=== PATIENT | female | born 1995 | race Caucasian/White ===

== ENCOUNTER 2019-01-23 18:55 | Inpatient (IN) | payer BC ==
[2019-01-23] MEDS ORDERED: D5 LR IV SOLUTION 1,000 ML IV ONE (19:02)
[2019-01-23] MEDS: D5 LR IV SOLUTION 1,000 ML IV SCH (19:40)
[2019-01-23] MEDS ORDERED: NS IV 500 ML 500 ML ONE (19:46)
[2019-01-23] MEDS ORDERED: MISOPROSTOL 100 MCG (CYTOTEC) TAB ONE (19:48)
[2019-01-23 20:00] VITALS: BP 136/81
[2019-01-23] MEDS ORDERED: HYDROmorphone 2 MG/ML VIAL (DILAUDID) IVP ONE (20:00)
[2019-01-23] MEDS ORDERED: NS IV 500 ML 500 ML IV SCH (20:00)
[2019-01-23] MEDS ORDERED: MISOPROSTOL 100 MCG (CYTOTEC) TAB PO ONE (20:00)
[2019-01-23 20:20] LABS: BASOPHILS % (AUTO) 0 % (0-10); EOSINOPHILS % (AUTO) 1 % (0-10); HEMATOCRIT 30 % (35-52); LYMPHOCYTES # (AUTO) 1.7 X 10^3 (1.0-4.0); LYMPHOCYTES % (AUTO) 28 % (12-44); MEAN CORPUSCULAR HEMOGLOBIN 28 PG (25-34); MEAN CORPUSCULAR HGB CONC 34 G/DL (32-36); MEAN CORPUSCULAR VOLUME 82 FL (80-99); MEAN PLATELET VOLUME 10.2 FL (7.4-10.4); MONOCYTES # (AUTO) 0.7 X 10^3 (0.0-1.0); MONOCYTES % (AUTO) 11 % (0-12); NEUTROPHILS # (AUTO) 3.5 X 10^3 (1.8-7.8); NEUTROPHILS % (AUTO) 60 % (42-75); PLATELET COUNT 218 10^3/uL (130-400); RED CELL DISTRIBUTION WIDTH 13.8 % (10.0-14.5); WHITE BLOOD COUNT 5.9 10^3/uL (4.3-11.0)
[2019-01-23 20:50] LABS: BILIRUBIN,URINE NEGATIVE (NEGATIVE); CLARITY,URINE SL CLOUDY; COLOR,URINE YELLOW; GLUCOSE, URINE (UA) NEGATIVE (NEGATIVE); KETONES,URINE TRACE (NEGATIVE); LEUKOCYTE ESTERASE ,URINE TRACE (NEGATIVE); NITRITE,URINE NEGATIVE (NEGATIVE); PROTEIN,URINE NEGATIVE (NEGATIVE)
[2019-01-23 20:56] LABS: BACTERIA,URINE MODERATE /HPF; SQUAMOUS EPITHELIAL CELL,UR >50 /HPF
[2019-01-23] MEDS ORDERED: CALCIUM CARBONATE 500 MG (TUMS) TAB.CHEW ONE (21:57)
[2019-01-24] VITALS (45 sets, daily range): BP systolic 112–166; BP diastolic 66–105
[2019-01-24] MEDS ORDERED: MISOPROSTOL 100 MCG (CYTOTEC) TAB PO SCH
[2019-01-24] MEDS ORDERED: ONDANSETRON 4 MG/2 ML (SDV) Z0FRAN ONE (01:05)
[2019-01-24] MEDS: D5 LR IV SOLUTION 1,000 ML IV SCH ×2 (04:29→11:20)
[2019-01-24] MEDS ORDERED: CALCIUM CARBONATE 500 MG (TUMS) TAB.CHEW PO PRN (05:15)
[2019-01-24] MEDS ORDERED: ONDANSETRON 4 MG/2 ML (SDV) Z0FRAN IVP PRN (05:15)
[2019-01-24] MEDS ORDERED: PREN-53 PO (05:16)
[2019-01-24] MEDS: CATHETER FLUSH 10 ML SYR IV SCH ×2 (06:15→06:16)
[2019-01-24] MEDS ORDERED: OXYTOCIN/NORMAL SALINE 500 ML IV SCH ×3 (07:10→15:00)
--- NOTE | 2019-01-24 07:30 | History & Physical-OB ---
OB - Chief Complaint & HPI Date/Time Date of Admission: Date of Admission: Jan 23, 2019 at 18:55 Date seen by a Provider: Jan 24, 2019 Time Seen by a Provider: 07:00 Chief Complaint/History OB-Reason for Admission/Chief: Induction of Labor Hx : 1 Hx Para: 0 Expected Date of Delivery: Jan 29, 2019 Gestational Age in Weeks: 39 Gestational Age in Days: 1 Admission Nurse Assessment Rev: Yes (`) History of Labs B pos Antibody neg RI RPR NR HBsAg HIV NR GC neg GBS neg Allergies and Home Medications Allergies Coded Allergies: No Known Drug Allergies (Unverified , 01/23/19) Home Medications [id number]/Iron Fumarate/FA/Dss 1 Each Tablet, 1 EACH PO DAILY, (Reported) Patient Home Medication List Home Medication List Reviewed: Yes OB - History Hx of Present Care: Yes Ultrasounds: Normal mid trimester US Obstetrical Complications: None Medical Complications: None Patient Past Medical History n/a Social History/Family History Recent Infectious Disease Expo: No Alcohol Use: Denies Use Recreational Drug Use: No Immunizations Date of Influenza Vaccine: Dec 14, 2018 OB - Admission Exam Physical Exam Vitals: Vital Signs 01/24/19 01/24/19 00:00 07:00 Temp 36.4 Pulse 49 Resp 18 B/P (MAP) 136/81 (99) HEENT: NCAT Heart: Rhythm Normal Lungs: Clear Abdomen: Gravid Extremities: Normal Reflexes: Normal Cervical Dilatation: 2cm Effacement: 75% Station: -1 Membranes: Intact Heart Rate: 130's Accelerations: Accelerations Present Decelerations: No Decelerations Short Term Variability: Present Financial Administrator Variability: Average (6-25) Contractions on Admission: < 5 Minutes Apart Intensity: Moderate Labs Laboratory Tests Test 01/23/19 19:15 01/23/19 20:10 Range/Units Urine Color YELLOW Urine Clarity SL CLOUDY Urine pH 6.0 5-9 Urine Specific [place] 1.020 1.016-1.022 Urine Protein NEGATIVE NEGATIVE Urine Glucose (UA) NEGATIVE NEGATIVE Urine Ketones TRACE H NEGATIVE Urine Nitrite NEGATIVE NEGATIVE Urine Bilirubin NEGATIVE NEGATIVE Urine Urobilinogen 0.2 < = 1.0 MG/DL Urine Leukocyte Esterase TRACE NEGATIVE Urine RBC (Auto) NEGATIVE NEGATIVE Urine RBC NONE /HPF Urine WBC 10-25 H /HPF Urine Squamous Epithelial Cells >50 H /HPF Urine Crystals NONE /LPF Urine Bacteria MODERATE H /HPF Urine Casts NONE /LPF Urine Mucus NEGATIVE /LPF Urine Culture Indicated YES White Blood Count 5.9 4.3-11.0 10^3/uL Red Blood Count 3.62 L 4.35-5.85 10^6/uL Hemoglobin 10.0 L 11.5-16.0 G/DL Hematocrit 30 L 35-52 % Mean Corpuscular Volume 82 80-99 FL Mean Corpuscular Hemoglobin 28 25-34 PG Mean Corpuscular Hemoglobin Concent 34 32-36 G/DL Red Cell Distribution Width 13.8 10.0-14.5 % Platelet Count 218 130-400 10^3/uL Mean Platelet Volume 10.2 7.4-10.4 FL Neutrophils (%) (Auto) 60 42-75 % Lymphocytes (%) (Auto) 28 12-44 % Monocytes (%) (Auto) 11 0-12 % Eosinophils (%) (Auto) 1 0-10 % Basophils (%) (Auto) 0 0-10 % Neutrophils # (Auto) 3.5 1.8-7.8 X 10^3 Lymphocytes # (Auto) 1.7 1.0-4.0 X 10^3 Monocytes # (Auto) 0.7 0.0-1.0 X 10^3 Eosinophils # (Auto) 0.0 0.0-0.3 10^3/uL Basophils # (Auto) 0.0 0.0-0.1 10^3/uL OB - Assessment/Plan/Diagnosis Assessment Assessment: induction of labor Admission Dx 23 yo @ 39 weeks Induction of labor- elective GBS neg Admission Status: Inpatient Order (span 2 midnights) Reason for Inpatient Admission: Term induction of labor Plan Induction Method: per Misoprostol Protocol (and AROM) LYNDSEY OCAMPO DO Jan 24, 2019 07:30 POS
[2019-01-24] MEDS ORDERED: SUFENTA 0.6MCG/ML BUPIVA 0.125 100 ML ONE (08:34)
--- NOTE | 2019-01-24 08:45 | NUR ---
anesthesia to OB floor
[2019-01-24] MEDS ORDERED: fentaNYL INJECTION 100 MCG/2 ML AMP ONE (08:46)
[2019-01-24] MEDS ORDERED: BUPIVACAINE 0.25% 30 ML (SENSORCAINE) VIAL ONE (08:46)
[2019-01-24] MEDS ORDERED: diphenhydrAMINE 50 MG/ML INJ (BENADRYL) IV PRN (09:30)
[2019-01-24] MEDS ORDERED: NALOXONE 0.4 MG/ML 1 ML (NARCAN) VIAL IV PRN ×2 (09:30)
[2019-01-24] MEDS ORDERED: LACTATED RINGERS 1,000 ML IV SCH (09:30)
[2019-01-24] MEDS ORDERED: EPIDURAL (SUFENTA 0.6MCG/ML BUPIVA 0.125%) 100 ML BAG EPI PRN (09:30)
[2019-01-24] MEDS ORDERED: METOCLOPRAMIDE INJ 10 MG/2 ML (REGLAN) IV PRN (09:30)
[2019-01-24] MEDS ORDERED: ONDANSETRON 4 MG/2 ML (SDV) Z0FRAN IV PRN (09:30)
[2019-01-24] MEDS ORDERED: LIDOCAINE/EPI 2% 1:200,00 (XYLOCAINE) 10 ML VIAL ONE (12:53)
[2019-01-24] MEDS ORDERED: FAMOTIDINE 20MG/2ML IV (PEPCID) ONE (12:57)
[2019-01-24] MEDS ORDERED: FAMOTIDINE 20MG/2ML IV (PEPCID) IVP ONE (13:00)
--- NOTE | 2019-01-24 13:07 | NUR ---
dr notified of patient reports of pressure to push with contractions.
--- NOTE | 2019-01-24 13:40 | NUR ---
pericare performed by this RN. light flow noted. 1342 vpad to perineum. epidural off. 1343 assisted out of stirrups. repositioned to semifowler. new gown on. 1346 epidural removed tip intact. 1348 fundal massage by this RN. ffu/1 light flow no clots expressed. repositioned to high fowlers. family at bedside.
[2019-01-24] MEDS ORDERED: IBUPROFEN 600 MG (MOTRIN) TAB PO ONE (13:53)
--- NOTE | 2019-01-24 14:10 | NUR ---
2nd bag of pitocin hung as ordered per dr lau. denies need. family at bedside. ffu/1. no clots. light to moderate flow.
--- NOTE | 2019-01-24 14:40 | NUR ---
resting quietly. 2nd bag of pitocin infused. ffu/0 light flow noted. remains skin to skin. actively nursing. mother denies need or concerns at this time.
[2019-01-24] MEDS ORDERED: TETANUS,DIPTH,PERTUSS P/F (BOOSTRIX) 0.5 ML VIAL IM ONE (15:00)
[2019-01-24] MEDS ORDERED: IBUPROFEN 600 MG (MOTRIN) TAB PO SCH (15:00)
[2019-01-24] MEDS ORDERED: MEASLES,MUMPS,RUBELLA 1 EA INJ SQ ONE (15:00)
--- NOTE | 2019-01-24 15:00 | NUR ---
resting quietly in bed. infant actively nursing at breast. good suck and latch noted. s/o at bedside. ffu/0 denies further need at this time.
--- NOTE | 2019-01-24 15:08 | OB Labor & Delivery Record ---
L&D History Date of Service Date of Service: Jan 24, 2019 History Expected Date of Delivery: Jan 29, 2019 Gestational Age in Weeks: 39 Hx : 1 Hx Para: 0 Complications Events: Routine care Operative Indications (Cesarea: N/A-Vaginal Delivery Intrapartal Events: None L&D Stage1 Stage One Onset of Labor - Date: Jan 24, 2019 Monitors and Tracing Monitor Mode: External Heart Rate: 120 Monitor Accelerations: Uniform Monitor Decelerations: None Station: +1 Brand Manager Variability: Average (6-10) Short Term Variability: Present Presentation: Vertex Vital Signs VS - Last 72 Hours, by Label POS 01/23/19 01/24/19 01/24/19 01/24/19 20:00 00:00 02:00 03:00 Temp 36.7 36.4 Pulse 86 64 60 Resp 18 18 18 18 B/P (MAP) 136/81 (99) 129/78 (95) 120/74 (89) 01/24/19 01/24/19 01/24/19 01/24/19 04:00 05:00 06:00 07:00 Pulse 62 53 53 49 Resp 18 18 18 18 B/P (MAP) 120/71 (87) 112/72 (85) 112/72 (85) 136/81 (99) 01/24/19 01/24/19 01/24/19 01/24/19 07:50 08:50 08:55 09:00 Pulse 71 77 75 76 Resp 18 20 20 20 B/P (MAP) 132/85 (101) 166/105 (125) 152/104 (120) 143/93 (110) Pulse Ox 100 100 99 O2 Delivery Room Air Room Air Room Air 01/24/19 01/24/19 01/24/19 01/24/19 09:05 09:10 09:15 09:20 Pulse 78 87 67 83 Resp 18 18 18 16 B/P (MAP) 141/95 (110) 146/89 (108) 133/79 (97) 130/83 (99) Pulse Ox 99 100 100 100 O2 Delivery Room Air Room Air Room Air Room Air 01/24/19 01/24/19 01/24/19 01/24/19 09:25 09:30 09:35 09:40 Pulse 76 60 65 86 Resp 16 16 18 18 B/P (MAP) 138/87 (104) 130/81 (97) 129/83 (98) 133/89 (104) Pulse Ox 100 100 100 100 O2 Delivery Room Air Room Air Room Air Room Air 01/24/19 01/24/19 01/24/19 01/24/19 09:45 10:00 10:15 10:30 Pulse 68 57 57 58 Resp 18 18 18 18 B/P (MAP) 135/85 (102) 132/80 (97) 133/82 (99) 123/74 (90) Pulse Ox 100 100 100 100 O2 Delivery Room Air Room Air Room Air Room Air 01/24/19 01/24/19 01/24/19 01/24/19 10:45 11:00 14:00 14:10 Temp 37.1 Pulse 66 61 74 79 Resp 18 18 18 18 B/P (MAP) 134/81 (98) 135/87 (103) 150/92 (111) 146/91 (109) Pulse Ox 100 100 100 100 O2 Delivery Room Air Room Air Room Air Room Air 01/24/19 14:25 Temp 36.4 Pulse 67 Resp 20 B/P (MAP) 151/72 (98) O2 Delivery Room Air Rupture of Membranes Spontaneous Ruture of Membrane: No Amniotic Membrane Rupture Time: 0706 Amniotic Membrane Fluid Desc.: Clear Vaginal Bleeding Description: Normal Show Induction/Anesthesia Epidural Cath Placement - Time: 858 Progress/Notes Patient admitted last night and received misoprostol PO overnight. She progressed to 2 cm this am, when AROM was performed and Pitocin was started. She progressed and received an epidural. She progressed to complete and +2 station when she began to feel pressure L&D Stage2 Stage Two Stage II Date: Jan 24, 2019 Monitors and Tracing Monitor Mode: External Heart Rate: 120 Monitor Accelerations: Uniform Monitor Decelerations: Variable Short Term Variability: Present Position: Right Occiput Anterior Presentation: Vertex Signs of Distress by FHT Signs of Distress heart rate difficult to trace during 2nd stage, and FHR in the 60s-80s with pushing. Due to proximity to delivery low vaccum extraction done with [place]. Cup applied to flexion point 500 mmHg appled by hand pump, and with next maternal push, RML was cut and 's head was delivered with extension and gentle traction of the vacuum. After which the suction was released. Cord Descript/Complications Cord Vessel Description: 3 Vessels Complications nuchal cord reduced x 1 Delivery Type Infant Delivery Method: Low Vacuum Extraction Anterior Shoulder: Right Episiotomy/Perineal Laceration Laceraction(s)/Extensions: Yes Episiotomy Description: Right Mediolateral Degree (describe repair) RML repaired using 3-0 and 2-0 vicryl suture in usual fashion Condition of Infant Delivery 1 minute Comment: 7 5 minute Comment: 9 Notes Live male weight 8lbs 7 oz Condition of Infant Condition of Infant: Living Exam: No Observed Abnormalities Resuscitation Resuscitation: N/A - Spontaneous Resp L&D Stage3 Stage Three Stage III Date: Jan 24, 2019 Pictocin Pitocin Administration mu/min: 10 Pitocin ml/hr: 10 Pitocin Administration Comment: 30 mu wide open at delivery of placenta Placenta Delivery Placenta Delivery: Spontaneous Delivery Summary Summary Estimated blood loss (mL): 350 Attending at delivery: Lyndsey Ocampo DO Condition of Delivery Examined: Cervix Examined, Uterus Explored Post Hemorrhage: No Condition of Mother stable Condition of (s) stable LYNDSEY OCAMPO DO Jan 24, 2019 3:08 pm POS
[2019-01-24] MEDS ORDERED: IBUP-844 PO (15:09)
[2019-01-24] MEDS ORDERED: HYDR-4226 PO (15:09)
[2019-01-24] MEDS ORDERED: DOCU100C37 PO (15:09)
[2019-01-24] MEDS ORDERED: Benzocaine/Menthol TP (15:09)
[2019-01-24] MEDS ORDERED: FERR325T18 PO (15:09)
--- NOTE | 2019-01-24 15:10 | Discharge Inst-Women's Service ---
Discharge Inst-Women's Serv Depart Medication/Instructions New, Converted or Re-Newed RX: RX on Chart Problems Reviewed?: Yes Consults/Follow Up Additional Follow Up: Yes Orders/Referrals Dr. Ocampo in 6 weeks Activity Activity: Activity as Tolerated Driving Instructions: No Driving for 1 Week NO SMOKING: NO SMOKING Nothing Inside Vagina: No Douching, No [place], No Tampons Diet Discharge Diet: No Restrictions Symptoms to Report to : Bleeding Excessive, Pain Increased, Fever Over 101 Degrees F, Vaginal Bleeding Increase, Questions/Concerns For Any Problems or Questions: Contact Your Physician LYNDSEY OCAMPO DO Jan 24, 2019 3:10 pm POS
[2019-01-24] MEDS: IBUPROFEN 600 MG (MOTRIN) TAB PO SCH (19:52)
[2019-01-24] MEDS: DOCUSATE SODIUM 100 MG (COLACE) CAP PO SCH (19:52)
[2019-01-24] MEDS ORDERED: CATHETER FLUSH 10 ML SYR IV SCH (22:00)
[2019-01-25] MEDS ORDERED: ACETAMINOPHEN 500 MG TAB (TYLENOL) ONE (00:20)
[2019-01-25 00:24] VITALS: BP 124/80
[2019-01-25] MEDS: WITCH HAZEL(TUCKS) 40 EA JAR TOP PRN ×2 (00:26→15:21)
[2019-01-25] MEDS: BENZOCAINE/MENTHOL (DERMOPLAST) 56 ML CAN TP PRN ×2 (00:26→15:20)
[2019-01-25] MEDS ORDERED: ACETAMINOPHEN 500 MG TAB (TYLENOL) PO PRN (00:30)
[2019-01-25] MEDS: IBUPROFEN 600 MG (MOTRIN) TAB PO SCH ×3 (02:20→15:43)
[2019-01-25 05:23] VITALS: BP 120/80
[2019-01-25 06:59] LABS: BASOPHILS % (AUTO) 0 % (0-10); EOSINOPHILS # (AUTO) 0.1 10^3/uL (0.0-0.3); EOSINOPHILS % (AUTO) 1 % (0-10); HEMATOCRIT 29 % (35-52); HEMOGLOBIN 9.9 G/DL (11.5-16.0); LYMPHOCYTES # (AUTO) 1.8 X 10^3 (1.0-4.0); LYMPHOCYTES % (AUTO) 23 % (12-44); MEAN CORPUSCULAR HEMOGLOBIN 28 PG (25-34); MEAN CORPUSCULAR HGB CONC 34 G/DL (32-36); MEAN CORPUSCULAR VOLUME 82 FL (80-99); MEAN PLATELET VOLUME 10.5 FL (7.4-10.4); MONOCYTES # (AUTO) 0.7 X 10^3 (0.0-1.0); MONOCYTES % (AUTO) 9 % (0-12); NEUTROPHILS # (AUTO) 5.3 X 10^3 (1.8-7.8); NEUTROPHILS % (AUTO) 67 % (42-75); PLATELET COUNT 182 10^3/uL (130-400); RED CELL DISTRIBUTION WIDTH 13.8 % (10.0-14.5); WHITE BLOOD COUNT 7.8 10^3/uL (4.3-11.0)
[2019-01-25] MEDS ORDERED: PRENATAL VITAMIN 1 EA TAB PO SCH (07:00)
--- NOTE | 2019-01-25 07:34 | Anesthesia-Regional Post-Op ---
Regional Patient Condition Mental Status: Alert, Oriented x3 Circulation: Same as Pre-Op Headache: Absent Sensation: Full Recovery Motor Block: Absent Post Op Complications Complications None Follow Up Care/Instructions Patient Instructions None needed. Anesthesia/Patient Condition Patient is doing well, no complaints, stable vital signs, no apparent adverse anesthesia problems. No complications reported per nursing. D/C home per [facility] [place] Criteria: AVIS Cruz CRNA Jan 25, 2019 07:34 POS
[2019-01-25] MEDS ORDERED: FERROUS SULF 325 MG (IRON) TAB PO SCH (08:00)
--- NOTE | 2019-01-25 08:05 | Postpartum Progress Note ---
Note Note Day # 1 Subjective: Patient is without complaints. Ambulating, voiding. Tolerating a regular diet without nausea or vomiting. Normal lochia. Pain is well controlled with oral pain medications. Objective: Physical Exam: General - Alert and oriented, no apparent distress Abdomen - Soft, appropriately tender to palpation, non-distended, fundus firm at umbilicus Extremities - no edema, negative Yesika's bilaterally Assessment: PPD 1 VAVD Anemia of Plan: Routine care. Encourage breast feeding. Encourage ambulation. Ferrous sulfate supplementation. Plan for discharge today Vitals - Labs Vital Signs - I&O Vital Signs Date Time Temp Pulse Resp B/P (MAP) Pulse Ox O2 Delivery O2 Flow Rate FiO2 01/25/19 05:23 36.7 61 20 120/80 (93) 99 Room Air 01/25/19 00:24 37.0 64 20 124/80 (95) 98 Room Air 01/24/19 19:54 37.6 69 20 122/77 (92) 98 Room Air 01/24/19 16:10 60 18 129/73 (91) 100 Room Air 01/24/19 16:00 36.8 71 20 119/68 (85) Room Air 01/24/19 15:25 67 18 122/83 (96) 100 Room Air 01/24/19 15:10 61 18 129/88 (102) 100 Room Air 01/24/19 15:00 36.4 69 18 142/82 (102) 100 Room Air 01/24/19 14:40 60 18 128/66 (86) 100 Room Air 01/24/19 14:25 36.4 67 20 151/72 (98) Room Air 01/24/19 14:10 79 18 146/91 (109) 100 Room Air 01/24/19 14:00 37.1 74 18 150/92 (111) 100 Room Air 01/24/19 13:45 36.9 75 18 143/81 (101) Room Air 01/24/19 13:30 36.8 101 18 154/85 (108) Room Air 01/24/19 13:15 96 20 162/95 (117) 100 Room Air 01/24/19 13:00 78 20 139/90 (106) 100 Room Air 01/24/19 12:45 107 20 136/86 (103) 100 Room Air 01/24/19 12:30 60 20 140/87 (104) 100 Room Air 01/24/19 12:15 58 20 142/88 (106) 100 Room Air 01/24/19 12:00 69 20 139/89 (106) 100 Room Air 01/24/19 11:45 83 18 134/81 (98) 100 Room Air 01/24/19 11:30 61 18 142/71 (94) 100 Room Air 01/24/19 11:15 62 18 136/87 (103) 100 Room Air 01/24/19 11:00 61 18 135/87 (103) 100 Room Air 01/24/19 10:45 66 18 134/81 (98) 100 Room Air 01/24/19 10:30 58 18 123/74 (90) 100 Room Air 01/24/19 10:15 57 18 133/82 (99) 100 Room Air 01/24/19 10:00 57 18 132/80 (97) 100 Room Air 01/24/19 09:45 68 18 135/85 (102) 100 Room Air 01/24/19 09:40 86 18 133/89 (104) 100 Room Air 01/24/19 09:35 65 18 129/83 (98) 100 Room Air 01/24/19 09:30 60 16 130/81 (97) 100 Room Air 01/24/19 09:25 76 16 138/87 (104) 100 Room Air 01/24/19 09:20 83 16 130/83 (99) 100 Room Air 01/24/19 09:15 67 18 133/79 (97) 100 Room Air 01/24/19 09:10 87 18 146/89 (108) 100 Room Air 01/24/19 09:05 78 18 141/95 (110) 99 Room Air 01/24/19 09:00 76 20 143/93 (110) 99 Room Air 01/24/19 08:55 75 20 152/104 (120) 100 Room Air 01/24/19 08:50 77 20 166/105 (125) 100 Room Air I & O 01/25/19 07:00 Intake Total 1000 ml Balance 1000 ml Labs Laboratory Tests 01/25/19 06:44: White Blood Count 7.8, Red Blood Count 3.57L, Hemoglobin 9.9L, Hematocrit 29L, Mean Corpuscular Volume 82, Mean Corpuscular Hemoglobin 28, Mean Corpuscular Hemoglobin Concent 34, Red Cell Distribution Width 13.8, Platelet Count 182, Mean Platelet Volume 10.5H, Neutrophils (%) (Auto) 67, Lymphocytes (%) (Auto) 23, Monocytes (%) (Auto) 9, Eosinophils (%) (Auto) 1, Basophils (%) (Auto) 0, Neutrophils # (Auto) 5.3, Lymphocytes # (Auto) 1.8, Monocytes # (Auto) 0.7, Eosinophils # (Auto) 0.1, Basophils # (Auto) 0.0 Microbiology 01/23/19 Urine Culture - Preliminary, Resulted Culture In Progress LYNDSEY OCAMPO DO Jan 25, 2019 08:05 POS
[2019-01-25] MEDS ORDERED: DOCUSATE CALCIUM 240 MG (SURFAK) CAP PO SCH (09:00)
[2019-01-25 10:15] VITALS: BP 134/85
--- NOTE | 2019-01-25 10:15 | NUR ---
AM shift assessment completed and vital signs obtained, see interventions. Plan of care reviewed with patient. Patient verbalizes understanding and questions answered. Scheduld Motrin, Colace, PNV, and Iron PO given. Fresh water and bathroom supplies provided.
[2019-01-25] MEDS: DOCUSATE SODIUM 100 MG (COLACE) CAP PO SCH (10:17)
--- NOTE | 2019-01-25 15:18 | NUR ---
Discharge instructions and medications reviewed with patient both written and verbally. Patient verbalizes understanding and questions answered.
[2019-01-25 15:43] VITALS: BP 142/91
--- NOTE | 2019-01-25 17:10 | NUR ---
Patient discharged at this time and accompanied down to awaiting private vehicle by Jeremy Villa PCCT. No signs or symptoms of distress noted.
== END 2019-01-25 17:10 | disposition home or self-care (01) | DRG 807 ==
LOC: LDRP 18:55
PROVIDERS: ADMIT Obstetrics & Gynecology; ATTEND Obstetrics & Gynecology
PROC: 10907ZC Drainage of Amniotic Fluid, Therapeutic from Products of Conception, Via Natural or Artificial Opening (ICD-10-PCS; principal; 2019-01-24)
PROC: 3E033VJ Introduction of Other Hormone into Peripheral Vein, Percutaneous Approach (ICD-10-PCS; principal; 2019-01-24)
PROC: 0W8NXZZ Division of Female Perineum, External Approach (ICD-10-PCS; principal; 2019-01-24)
PROC: 10D07Z6 Extraction of Products of Conception, Vacuum, Via Natural or Artificial Opening (ICD-10-PCS; principal; 2019-01-24)
DX: O76 Abnormality in fetal heart rate and rhythm complicating labor and delivery (principal); Z37.0 Single live birth; Z3A.39 39 weeks gestation of pregnancy; O69.81X0 Labor and delivery complicated by cord around neck, without compression, not applicable or unspecified; Z23 Encounter for immunization
CPT/HCPCS: 36415; 81000; 85025; 86850; 86900; 86901; 87088